=== PATIENT | male | born 1960 ===

== ENCOUNTER 2024-07-20 19:45 | Observation (INO) ==
[2024-07-20] MEDS ORDERED: IOPAMIDOL 100 ML BOTTLE IV ONE (19:46)
[2024-07-20 20:31] LABS: Basophils # (Auto) 0.04 K/mcL (0.00-0.30); Basophils % (Auto) 0.5 % (0.0-2.0); Eosinophils % (Auto) 2.7 % (0.0-7.0); Hemoglobin 15.5 g/dL (13.7-17.5); Lymphocytes # (Auto) 2.21 K/mcL (1.50-4.80); Mean Cell Volume 95.6 fL (80.0-100.0); Mean Corpuscular HGB Conc 33.7 g/dL (31.0-36.0); Mean Platelet Volume 10.1 fL (8.8-12.5); Monocytes # (Auto) 0.89 K/mcL (0.10-0.90); Monocytes % (Auto) 12.1 % (1.0-12.0); Neutrophils % (Auto) 54.6 % (38.0-78.0); Platelet Count 225 K/mcL (140-440); RBC 4.81 M/mcL (4.63-6.08); Red Cell Distribution Width 12.5 % (11.5-14.5); WBC 7.4 K/mcL (4.5-11.0)
[2024-07-20] MEDS: THIAMINE 100 MG/ML VIAL ONE (20:41)
[2024-07-20] MEDS: THIAMINE 500 MG in 0.9 % SODIUM CHLORIDE 50 ML IV ONE (20:41)
[2024-07-20 20:51] LABS: ALT/SGPT 44 U/L (<40); AST/SGOT 28 U/L (<40); Albumin 4.2 gm/dL (3.2-5.2); Albumin/Globulin Ratio 1.6 (1.0-2.3); Alcohol, Blood < 10.1 mg/dL; Alcohol,Blood < 0.010 gm/dL (<0.010); Alkaline Phosphatase 63 U/L (39-117); Bilirubin,Total 0.3 mg/dL (0.1-1.0); Blood Urea Nitrogen 22 mg/dL (8-23); Calcium 9.6 mg/dL (8.6-10.4); Carbon Dioxide 25 mmol/L (22-30); Chloride 102 mmol/L (96-108); Globulin 2.6 gm/dL (2.2-3.7); Glomerular Filtration Rate 96; Glucose 134 mg/dL (70-105); Sodium 139 mmol/L (133-145)
[2024-07-20 21:24] LABS: INR 0.9 (0.9-1.1); Partial Thromboplastin Time 32.3 sec (20.0-37.0); Prothrombin Time 13.1 sec (11.9-14.5)
[2024-07-20] MEDS: ASPIRIN 325 MG ENTERIC COATED TABLET PO ONE (21:43)
[2024-07-20] MEDS: CLOPIDOGREL 75 MG TABLET PO ONE (21:43)
[2024-07-20] MEDS ORDERED: IPRATROPIUM/ALBUTEROL 3 ML AMPUL.NEB NEB PRN (22:45)
[2024-07-20] MEDS ORDERED: SENNOSIDES 1 TABLET PO PRN (22:45)
[2024-07-20] MEDS ORDERED: LORazepam 2 MG/ML VIAL IV PRN (22:45)
[2024-07-20] MEDS ORDERED: POTASSIUM CHLORIDE 20 MEQ TABLET PO PRN ×2 (22:45)
[2024-07-20] MEDS ORDERED: POLYETHYLENE GLYCOL 3350 17 GM PACKET PO PRN (22:45)
[2024-07-20] MEDS ORDERED: chlordiazePOXIDE 25 MG CAPSULE PO PRN (22:45)
[2024-07-20] MEDS ORDERED: MAGNESIUM SULFATE 2 GM/50 ML BAG IV PRN (22:45)
[2024-07-20] MEDS ORDERED: POTASSIUM CHLORIDE 40 MEQ in DEXTROSE 5% IN WATER 500 ML IV PRN (22:45)
[2024-07-20] MEDS ORDERED: ACETAMINOPHEN 160 MG/5 ML ORAL.SOL PO PRN (22:45)
[2024-07-20] MEDS: 0.9 % SODIUM CHLORIDE 2,000 ML IV ONE (22:49)
[2024-07-20] MEDS: 0.9 % SODIUM CHLORIDE 10 ML SYRINGE IV SCH (23:00)
[2024-07-21 00:06] LABS: HDL Cholesterol 33 mg/dL (>40); LDL Cholesterol,Calculated 136 mg/dL (<100); Non-HDL Cholesterol 209 mg/dL (<130); Triglycerides 369 mg/dL (<150)
[2024-07-21 06:30] LABS: ALT/SGPT 39 U/L (<40); AST/SGOT 24 U/L (<40); Albumin 3.9 gm/dL (3.2-5.2); Albumin/Globulin Ratio 1.7 (1.0-2.3); Alkaline Phosphatase 54 U/L (39-117); Bilirubin,Direct < 0.2 mg/dL (0-0.3); Bilirubin,Total 0.3 mg/dL (0.1-1.0); Blood Urea Nitrogen 19 mg/dL (8-23); Calcium 9.1 mg/dL (8.6-10.4); Carbon Dioxide 24 mmol/L (22-30); Chloride 104 mmol/L (96-108); Globulin 2.3 gm/dL (2.2-3.7); Glomerular Filtration Rate 96; Glucose 113 mg/dL (70-105); Lactate Dehydrogenase 153 U/L (135-225); Sodium 139 mmol/L (133-145); Triglycerides 313 mg/dL (<150); Uric Acid 7.4 mg/dL (2.5-8.0)
[2024-07-21 07:38] LABS: Appearance,Urine Clear (Clear); Bilirubin,Urine Negative (Negative); Color,Urine Yellow; Glucose,Urine (UA) Negative (Negative); Ketones,Urine Negative (Negative); Leukocyte Esterase,Urine Negative /uL (Negative); Nitrate,Urine Negative (Negative); PH,Urine 5.5 (5.0-9.0); Protein,Urine Negative (Negative); Specific Gravity,Urine 1.015 (1.000-1.035); Urine Blood Negative ery/mcL (Negative); Urine RBC 0 /hpf (0-3); Urine Squamous Epithelial Cell 0 /hpf (0-4); Urine WBC 0 /hpf (0-4); Urobilinogen,Urine Normal
[2024-07-21] MEDS: MULTIVIT,THER IRON,CA,FA & MIN 1 TABLET PO SCH (10:07)
[2024-07-21] MEDS: THIAMINE 100 MG in 0.9 % SODIUM CHLORIDE 50 ML IV SCH (10:07)
[2024-07-21] MEDS ORDERED: ENOXAPARIN 40 MG/0.4 ML SYRINGE ONE (10:07)
[2024-07-21] MEDS: FOLIC ACID 1 MG TABLET PO SCH (10:07)
[2024-07-21] MEDS: DOCUSATE SODIUM 100 MG CAPSULE PO SCH (10:07)
[2024-07-21] MEDS: ENOXAPARIN 40 MG/0.4 ML SYRINGE SQ SCH (10:07)
[2024-07-21] MEDS: ASPIRIN 81 MG TAB.CHEW PO SCH (10:07)
[2024-07-21] MEDS: CLOPIDOGREL 75 MG TABLET PO SCH (10:08)
[2024-07-21] MEDS: THIAMINE 100 MG/ML VIAL ONE (10:20)
[2024-07-21] MEDS ORDERED: ATORVASTATIN 40 MG TABLET PO SCH (21:00)
== END 2024-07-21 13:15 | disposition home or self-care (01) ==
LOC: ED 19:45 → ICU 19:45
PROVIDERS: ADMIT Internal Medicine; ATTEND Internal Medicine